=== PATIENT | female | born 1965 | race African-American/Black ===

== ENCOUNTER 2018-11-10 21:45 | Emergency (ER) | payer OTHER ==
[~2018-11-10] VITALS: Ht 165.1 cm; Wt 62.1 kg
[2018-11-10 22:01] VITALS: BP 149/78
--- NOTE | 2018-11-10 22:03 | NUR ---
ED Nurse Note: Patient ambulated to Ed c/o dog bite on right thumb at 2100. pt denies pain. pt states her dogs vaccinations are up to date. scan amount of blood noted on dressing pt came in with. pulse and sensation noted. cap refill less than 3.
[2018-11-10] MEDS ORDERED: AUGMENTIN 875-1 EAC1 ORAL (22:30)
[2018-11-10] MEDS ORDERED: MUPIROCIN22 GM TOPIC (22:30)
[2018-11-10] MEDS ORDERED: Bacitracin Oint UD TOPIC ONE (22:30)
--- NOTE | 2018-11-10 22:31 | Emergency Room Report ---
History of Present Illness General Chief Complaint: Animal Bite Source: Patient Present Illness HPI This is a 53-year-old female who is right-hand dominant. She presents with altered bite to her right thumb. She was going to pet her dog who was in his bed. The dog turned around and snapped at her. It hit her on the right thumb. This occurred just prior to arrival. No fever chills but no nausea no vomiting. Throbbing pain. Bleeding controlled. Patient tetanus is up to date. Dog shots up-to-date. Allergies: Coded Allergies: No Known Allergies (Unverified , 11/10/18) Patient History Past Medical History: see triage record, old chart reviewed Past Surgical History: none Pertinent Family History: none Social History: Denies: smoking Now: No Immunizations: UTD Reviewed Nursing Documentation: PMH: Agreed; PSxH: Agreed Nursing Documentation-PMH Past Medical History: No Stated History Review of Systems Eye: Denies: eye pain, blurred vision ENT: Denies: ear pain, nose congestion, throat swelling Respiratory: Denies: cough, shortness of breath Cardiovascular: Denies: chest pain, palpitations Gastrointestinal: Denies: abdominal pain, diarrhea, nausea, vomiting Musculoskeletal: Denies: back pain, joint pain Skin: Denies: rash Neurological: Denies: headache, numbness Endocrine: Denies: increased thirst, increased urine Hematologic/Lymphatic: Denies: easy bruising All Other Systems: negative except mentioned in HPI Physical Exam Vital Signs Date Time Temp Pulse Resp B/P (MAP) Pulse Ox O2 Delivery O2 Flow Rate FiO2 11/10/18 21:53 98.8 113 16 154/79 97 vitals unremarkable Sp02 EP Interpretation: reviewed, normal General Appearance: well appearing, no apparent distress, alert Head: normocephalic, atraumatic Eyes: bilateral eye PERRL, bilateral eye EOMI ENT: hearing grossly normal, normal pharynx Neck: full range of motion, supple, no meningismus Respiratory: chest non-tender, lungs clear, normal breath sounds Cardiovascular #1: regular rate, rhythm, no murmur Gastrointestinal: normal bowel sounds, non tender, no mass, no organomegaly, no bruit, non-distended Musculoskeletal: back normal, gait/station normal, normal range of motion, other - Right thumb: She has 2 to facial laceration/abrasion to the volar aspect the thumb. There is one on the unit dorsal aspect of the proximal phalanx. Full range of motion the MCP and DIP joint per sensation normal. No foreign body. Psychiatric: mood/affect normal Skin: warm/dry Medical Decision Making Diagnostic Impression: Primary Impression: Dog bite of finger Qualified Codes: S61.259A - Open bite of unspecified finger without damage to nail, initial encounter; W54.0XXA - Bitten by dog, initial encounter ER Course Patient with a dog bite to her thumb. Increased risk for infection. Wound are well approximated. I will not suture this up. Wound irrigated copiously and antibiotic dressing done. We'll discharge home. She went to pet the dog while he was sleeping. Low risk for rabies. Last Vital Signs Date Time Temp Pulse Resp B/P (MAP) Pulse Ox O2 Delivery O2 Flow Rate FiO2 11/10/18 22:01 98.8 71 16 149/78 98 Status: improved Disposition: HOME, SELF-CARE Condition: Stable Scripts Amoxicillin/Potassium Clav 875-125* (AUGMENTIN 875-125 TABLET*) 1 Each Tablet 1 TAB ORAL TWICE A DAY, #14 TAB Prov: Tyrell Lin MD 11/10/18 Mupirocin* (MUPIROCIN*) 22 Gm Oint...g. 1 APPLIC TOPIC THREE TIMES A DAY, #22 GM Prov: Tyrell Lin MD 11/10/18 Patient Instructions: Animal Bite Additional Instructions: Keep wound clean. Follow-up with your doctor in 2-3 days for recheck. Return for evidence of infection. Tyrell Lin MD Nov 10, 2018 22:31
[2018-11-10 22:32] VITALS: BP 140/77
--- NOTE | 2018-11-10 22:33 | NUR ---
ER DISCHARGE NOTE: Patient is cleared to be discharged per ERMD, pt is aox4, on room air, with stable vital signs. pt was given dc and prescription instructions, pt was able to verbalize understanding, pt id band removed without complications. pt is able to ambulate with steady gait. pt took all belongings.
== END 2018-11-10 22:42 | disposition home or self-care (01) ==
LOC: EMR 22:14
DX: S61.051A Open bite of right thumb without damage to nail, initial encounter (principal); W54.0XXA Bitten by dog, initial encounter; Y92.9 Unspecified place or not applicable
CPT/HCPCS: 99283